=== PATIENT | female | born 1970 | race Caucasian/White ===

== ENCOUNTER 2016-07-22 13:07 | Emergency (ER) | payer BC, OTHER ==
[2016-07-22 15:14] VITALS: BP 142/92
--- NOTE | 2016-07-22 15:26 | UC ---
Lower Extremity/Ankle HPI - HPI Summary HPI Summary: complaint of right leg pain fell 2 days ago climbing through a gate and fell onto the pavement was extremely painful at the time was amble to ambulate with a limp after injury pressing the gas peddle of car was extremely painful used ice and rested leg ambulating makes the pain worse today went to PT and was told to get checked out taking ibuprofen and tylenol witr some relief - History of Current Complaint Chief Complaint: UCGeneralIllness Stated Complaint: LEG INJURY Time Seen by Provider: 07/22/16 15:18 Hx Obtained From: Patient Hx Last Menstrual Period: 07/09/16 Aggravating Factor(s): Ambulation Alleviating Factor(s): Rest, Ice Able to Bear Weight: Yes - Allergies/Home Medications Allergies/Adverse Reactions: Allergies Allergy/AdvReac Type Severity Reaction Status Date / Time No Known Allergies Allergy Verified 07/22/16 14:56 Home Medications: Home Medications Atorvastatin* [Lipitor 40 MG*] 40 mg PO DAILY 07/22/16 [History Confirmed ] Montelukast Sodium TAB* [Singulair 10 MG TAB*] 10 mg PO DAILY 07/22/16 [History Confirmed 07/22/16] PMH/Surg Hx/FS Hx/Imm Hx Previously Healthy: Yes Endocrine History Of: Reports: Diabetes - type 2 Denies: Thyroid Disease Cardiovascular History Of: Reports: Hypertension Denies: Cardiac Disorders Respiratory History Of: Denies: COPD, Asthma GI/ History Of: Denies: Ulcer - Surgical History Surgical History: Yes Surgery Procedure, Year, and Place: lap cholecystectomy 2006 - Family History Known Family History: Positive: None Negative: Cardiac Disease, Hypertension, Diabetes - Social History Occupation: Employed Full-time Lives: With Family Alcohol Use: Rare Alcohol Amount: 1 per month Substance Use Type: None Smoking Status (MU): Never Smoked Tobacco - Immunization History Most Recent Tetanus Shot: <10 years ago - pt states Review of Systems Constitutional: Negative Skin: Negative Eyes: Negative ENT: Negative Respiratory: Negative Cardiovascular: Negative Gastrointestinal: Negative Genitourinary: Negative Motor: Negative Neurovascular: Negative Musculoskeletal: Other: - right lower leg pain Neurological: Negative Psychological: Negative All Other Systems Reviewed And Are Negative: Yes Physical Exam Triage Information Reviewed: Yes Appearance: No Pain Distress, Well-Nourished Vital Signs: Initial Vital Signs Temp 98.1 F 07/22/16 15:02 Pulse 73 07/22/16 15:02 Resp 20 07/22/16 15:02 BP 142/92 07/22/16 15:02 Pulse Ox 96 07/22/16 15:02 Vital Signs Reviewed: Yes Eyes: Positive: Conjunctiva Clear ENT: Positive: Pharynx normal, TMs normal Neck: Positive: No Lymphadenopathy Respiratory: Positive: Lungs clear, Normal breath sounds, No respiratory distress, No accessory muscle use Cardiovascular: Positive: RRR, No Murmur, Pulses Normal Abdomen Description: Positive: Nontender, Soft Bowel Sounds: Positive: Present Musculoskeletal: Positive: Other: - RLE- mild tenderness on lateral side of ankle tenderness and edema throughout anterior side tibia, tenderness and edema over proximal and distal fibula right ankle-No bony deformities, inflammation, or tenderness in bony prominences or soft tissue of foot or ankle. RLE - measures 440 mm, LLE [id number] no pain in calf- tenderness in side of the leg Neurological Exam: Normal Psychological Exam: Normal Skin Exam: Normal Lower Extremity Course/Dx - Course Course Of Treatment: exam completed. x-ray shows no fractures in RLE. will transfer to higher level of care d/t possibility of DVT - Differential Dx/Diagnosis Differential Diagnosis/HQI/PQRI: DVT, Fracture (Closed), Sprain, Strain Provider Diagnoses: right lower extremity pain - Physician Notifications Discussed Patient Care With: Jenn Arias RN Time Discussed With Above Provider: 16:27 Discharge - Discharge Plan Condition: Stable Disposition: [facility] Referrals: Kerry Skinner MD [Medical Doctor] - Additional Instructions: Your blood pressure is elevated. Please contact your primary care provider within 1 day -4 weeks for further evaluation.
--- NOTE | 2016-07-22 15:59 | RAD ---
Indication: Right lower leg injury. 2 views of the right tibia and fibula demonstrates no fracture. No other bone or joint abnormality is noted. IMPRESSION: No fracture of the right leg is noted.
== END 2016-07-22 16:29 | disposition short-term general hospital (02) ==
LOC: UCEAST 13:07
DX: M79.604 Pain in right leg (principal); E11.9 Type 2 diabetes mellitus without complications; I10 Essential (primary) hypertension; Z90.49 Acquired absence of other specified parts of digestive tract
CPT/HCPCS: 99212; G0463

== ENCOUNTER 2016-07-22 17:04 | Emergency (ER) | payer OTHER ==
[2016-07-22 17:16] VITALS: BP 152/82
--- NOTE | 2016-07-22 17:58 | RAD ---
Indication: Right leg edema and pain. Duplex Doppler sonography of the deep venous system of the right lower extremity deep venous system was performed. Bilaterally the common femoral veins appear patent and compressible. Right proximal greater saphenous vein, proximal deep femoral vein, femoral vein, popliteal vein, posterior tibial veins and peroneal veins appear patent and compressible. IMPRESSION: NO EVIDENCE OF DEEP VENOUS THROMBOSIS IS IDENTIFIED.
--- NOTE | 2016-07-22 18:41 | ED ---
Lower Extremity - History of Current Complaint Chief Complaint: EDExtremityLower Stated Complaint: R/O DVT RIGHT LEG Hx Last Menstrual Period: 07/09/16 Pain Intensity: 2 - Allergies/Home Medications Allergies/Adverse Reactions: Allergies Allergy/AdvReac Type Severity Reaction Status Date / Time No Known Allergies Allergy Verified 07/22/16 17:13 PMH/Surg Hx/FS Hx/Imm Hx Endocrine/Hematology History: Reports: Hx Diabetes - type 2 Denies: Hx Thyroid Disease Cardiovascular History: Reports: Hx Hypertension Respiratory History: Denies: Hx Asthma, Hx Chronic Obstructive Pulmonary Disease (COPD) GI History: Denies: Hx Ulcer - Surgical History Surgery Procedure, Year, and Place: lap cholecystectomy 2006 Infectious Disease History: No Infectious Disease History: Denies: Hx Hepatitis, Hx Human Immunodeficiency Virus (HIV), Traveled Outside the [place] in Last 30 Days - Family History Known Family History: Positive: None Negative: Cardiac Disease, Hypertension, Diabetes - Social History Alcohol Use: Rare Alcohol Amount: 1 per month Substance Use Type: Reports: None Smoking Status (MU): Never Smoked Tobacco Physical Exam Vital Signs On Initial Exam: Initial Vitals Temp Pulse Resp BP Pulse Ox 97.7 F 117 16 152/82 97 07/22/16 17:13 07/22/16 17:13 07/22/16 17:13 07/22/16 17:13 07/22/16 17:13 Diagnostics - Vital Signs Vital Signs Temp Pulse Resp BP Pulse Ox 07/22/16 17:13 97.7 F 117 16 152/82 97 - Laboratory Lab Statement: Any lab studies that have been ordered have been reviewed, and results considered in the medical decision making process. - Ultrasound No standard instances Ultrasound Interpretation: No Acute Changes - NO EVIDENCE OF DEEP VENOUS THROMBOSIS IS IDENTIFIED. Ultrasound Interpretation Completed By: Radiologist Lower Extremity Course/Dx - Diagnoses Differential Diagnosis/HQI/PQRI: Positive: Contusion, Dislocation, Fracture ( Closed), Sprain, Strain Provider Diagnoses: Contusion of right lower leg, Abrasion of right lower leg, Strain of gastrocnemius tendon of right lower extremity Discharge - Discharge Plan Condition: Stable Disposition: HOME Patient Education Materials: Contusion in Adults (ED), Muscle Strain (ED) Additional Instructions: Take OTC Aleve or Ibuprofen for pain and inflammation. Wear davi bandage as needed for extra support. Continue ice, elevation and rest. Use pain as your guide. Neosporin or triple antibiotic ointment to your abrasion, keep clean and dry. IF you develop worsening symptoms, new symptoms or signs of infection such as discharge, increased redness/streaks and warmth please seek medical attention promptly. Follow up with pcp.
== END 2016-07-22 19:12 | disposition home or self-care (01) ==
LOC: ED 17:04
DX: S80.11XA Contusion of right lower leg, initial encounter (principal); S86.911A Strain of unspecified muscle(s) and tendon(s) at lower leg level, right leg, initial encounter; W19.XXXA Unspecified fall, initial encounter; Y93.9 Activity, unspecified; Y92.9 Unspecified place or not applicable; S80.811A Abrasion, right lower leg, initial encounter
CPT/HCPCS: 99281